=== PATIENT | male | born 1970 | race Caucasian/White ===

== ENCOUNTER 2016-08-11 21:16 | Emergency (ER) | payer OTHER ==
--- NOTE | ~2016-08-11 | CR173 ---
[facility] A Service of [facility] RADIOLOGY TEXT RESULTS PATIENT: LUPILLO CONWAY LOCATION: [facility] : 68 UNIT #: [id number] AGE: [address]: Katelin Cooper APRN SEX: M ORDER DR: [id number] [facility] [address] [facility] [address]. [place], [place] [address] [id number] E MR#: [id number] Acc #: [id number] NAME: LUPILLO CONWAY : 1970 SEX: M STUDY DATE/TIME: 08/11/2016 21:25 UNIT: [facility] ROOM: STUDY DESCRIPTION: CR Knee 3 Views Rt Attending Physician: Katelin Cooper A.P.R.N. Ordering Physician: [facility] MEDICAL IMAGING REPORT This report is preliminary unless electronic signature is present EXAM Right knee series 08/11/2016 HISTORY Trauma, right knee under patella. Pain in the calf, cannot straighten. Fell down steps. TECHNIQUE AP, lateral and sunrise views of the right knee are presented. COMPARISON STUDIES No comparisons. FINDINGS No fracture. [id number] narrowing medial joint space compartment. No soft tissue defect, subcutaneous air or radiodense foreign body. No joint effusion. If it would assist in management, knee could be further evaluated on elective basis with MRI if patient is a candidate. Dictated by... Nigel Fink M.D. THIS IS AN ELECTRONICALLY VERIFIED REPORT Nigel Fink M.D. at 08/12/2016 3:05 PM JSK/pcl TD: 08/12/2016 01:31 JOB #: [id number] MEDICAL IMAGING REPORT [facility] A Service of [facility] RADIOLOGY TEXT RESULTS PATIENT: LUPILLO CONWAY LOCATION: [facility] : 68 UNIT #: [id number] AGE: [address]: Katelin Cooper APRN SEX: M ORDER DR: Page 1 of 1 COPY
== END 2016-08-11 22:25 | disposition home or self-care (01) ==
LOC: CFTX 21:16
DX: S83.91XA Sprain of unspecified site of right knee, initial encounter (principal); X50.9XXA Other and unspecified overexertion or strenuous movements or postures, initial encounter; Y93.01 Activity, walking, marching and hiking; Y92.009 Unspecified place in unspecified non-institutional (private) residence as the place of occurrence of the external cause
CPT/HCPCS: 29530; 73562; 96372; 99283; J1885